=== PATIENT | male | born 1980 | race Caucasian/White ===

== ENCOUNTER → 2016-06-17 | Outpatient (CLI) | payer MEDICARE | LOC: YCFC.O 10:23 | PROVIDERS: ATTEND Nurse Practitioner Family | DX: I82.509 Chronic embolism and thrombosis of unspecified deep veins of unspecified lower extremity (principal) ==

== ENCOUNTER → 2016-06-24 | Outpatient (CLI) | payer MEDICARE | LOC: YCFC.O 09:31 | PROVIDERS: ATTEND Nurse Practitioner Family | DX: I82.509 Chronic embolism and thrombosis of unspecified deep veins of unspecified lower extremity (principal) ==

== ENCOUNTER → 2016-07-01 | Outpatient (CLI) | payer MEDICARE | LOC: YCFC.O 10:19 | PROVIDERS: ATTEND Nurse Practitioner Family | DX: I82.509 Chronic embolism and thrombosis of unspecified deep veins of unspecified lower extremity (principal) ==

== ENCOUNTER → 2016-07-09 | Outpatient (CLI) | payer MEDICARE | LOC: YCFC.O 15:50 | PROVIDERS: ATTEND Nurse Practitioner Family | DX: I82.509 Chronic embolism and thrombosis of unspecified deep veins of unspecified lower extremity (principal) ==

== ENCOUNTER → 2016-07-22 | Outpatient (CLI) | payer MEDICARE, MEDICAID | END | disposition home or self-care (01) | LOC: YCFC.O 10:31 | PROVIDERS: ATTEND Nurse Practitioner Family | DX: I82.509 Chronic embolism and thrombosis of unspecified deep veins of unspecified lower extremity (principal) ==

== ENCOUNTER → 2016-07-30 | Outpatient (CLI) | payer MEDICARE, MEDICAID | LOC: YCFC.O 16:54 | PROVIDERS: ATTEND Nurse Practitioner Family | DX: I82.509 Chronic embolism and thrombosis of unspecified deep veins of unspecified lower extremity (principal) ==

== ENCOUNTER → 2016-08-06 | Outpatient (CLI) | payer MEDICARE, MEDICAID | END | disposition home or self-care (01) | LOC: YCFC.O 10:18 | PROVIDERS: ATTEND Nurse Practitioner Family | DX: I82.509 Chronic embolism and thrombosis of unspecified deep veins of unspecified lower extremity (principal) ==

== ENCOUNTER → 2016-08-11 | Outpatient (CLI) | payer MEDICARE, MEDICAID | END | disposition home or self-care (01) | LOC: YCFC.O 15:43 | PROVIDERS: ATTEND Nurse Practitioner Family | DX: I82.509 Chronic embolism and thrombosis of unspecified deep veins of unspecified lower extremity (principal) ==

== ENCOUNTER → 2016-08-26 | Outpatient (CLI) | payer MEDICARE, MEDICAID | END | disposition home or self-care (01) | LOC: YCFC.O 10:07 | PROVIDERS: ATTEND Nurse Practitioner Family | DX: I82.509 Chronic embolism and thrombosis of unspecified deep veins of unspecified lower extremity (principal) ==

== ENCOUNTER → 2016-09-03 | Outpatient (CLI) | payer MEDICARE, MEDICAID | END | disposition home or self-care (01) | LOC: YCFC.O 10:40 | PROVIDERS: ATTEND Nurse Practitioner Family | DX: I82.509 Chronic embolism and thrombosis of unspecified deep veins of unspecified lower extremity (principal) ==

== ENCOUNTER → 2016-09-09 | Outpatient (CLI) | payer MEDICARE, MEDICAID | END | disposition home or self-care (01) | LOC: YCFC.O 08:27 | PROVIDERS: ATTEND Nurse Practitioner Family | DX: I82.509 Chronic embolism and thrombosis of unspecified deep veins of unspecified lower extremity (principal) ==

== ENCOUNTER → 2016-10-16 | Outpatient (CLI) | payer MEDICARE, MEDICAID | END | disposition home or self-care (01) | LOC: YCFC.O 15:03 | PROVIDERS: ATTEND Nurse Practitioner Family | DX: I82.509 Chronic embolism and thrombosis of unspecified deep veins of unspecified lower extremity (principal) ==

== ENCOUNTER → 2016-10-21 | Outpatient (CLI) | payer MEDICARE, MEDICAID | END | disposition home or self-care (01) | LOC: LAB.O 12:11 | PROVIDERS: ATTEND Nurse Practitioner Family | DX: I82.509 Chronic embolism and thrombosis of unspecified deep veins of unspecified lower extremity (principal) ==

== ENCOUNTER → 2016-11-04 | Outpatient (CLI) | payer MEDICARE, MEDICAID | END | disposition home or self-care (01) | LOC: YCFC.O 10:23 | PROVIDERS: ATTEND Nurse Practitioner Family | DX: I82.509 Chronic embolism and thrombosis of unspecified deep veins of unspecified lower extremity (principal) ==

== ENCOUNTER → 2016-11-25 | Outpatient (CLI) | payer MEDICARE, MEDICAID | END | disposition home or self-care (01) | LOC: YCFC.O 12:10 | PROVIDERS: ATTEND Nurse Practitioner Family | DX: I82.509 Chronic embolism and thrombosis of unspecified deep veins of unspecified lower extremity (principal) ==

== ENCOUNTER → 2016-12-10 | Outpatient (CLI) | payer MEDICARE, MEDICAID | END | disposition home or self-care (01) | LOC: YCFC.O 09:08 | PROVIDERS: ATTEND Nurse Practitioner Family | DX: I82.509 Chronic embolism and thrombosis of unspecified deep veins of unspecified lower extremity (principal) ==

== ENCOUNTER 2016-12-12 07:32 | Emergency (ER) | payer MEDICARE, MEDICAID ==
[2016-12-12 07:47] VITALS: TEMP 97.7
[2016-12-12] MEDS ORDERED: AZITHROMYCIN 250 MG TAB PO ONE (08:22)
[2016-12-12] MEDS ORDERED: cefTRIAXone SODIUM 1 GM VIAL IM ONE ×2 (08:25→08:26)
--- NOTE | 2016-12-12 08:29 | ED.PDOC ---
History of Present Illness - General Chief Complaint: ENT Problem Stated Complaint: sorethroat Time Seen by Provider: 12/12/16 07:52 Source: patient Exam Limitations: no limitations - History of Present Illness Timing/Duration: 24 hours Severity: moderate Improving Factors: nothing Worsening Factors: nothing Associated Symptoms: denies symptoms Allergies/Adverse Reactions: Allergies NO KNOWN ALLERGY Allergy (Verified 12/12/16 07:42) Home Medications: Ambulatory Orders Warfarin Sodium [Coumadin] 6 mg PO DAILY 01/16/15 Review of Systems - Review of Systems Constitutional: States: no symptoms reported EENTM: States: throat pain Respiratory: States: no symptoms reported Cardiology: States: no symptoms reported Gastrointestinal/Abdominal: States: no symptoms reported Genitourinary: States: no symptoms reported Musculoskeletal: States: no symptoms reported Skin: States: no symptoms reported Neurological: States: no symptoms reported Endocrine: States: no symptoms reported All other Systems: No Change from Baseline Past Medical History (General) - Patient Medical History Hx Seizures: No Hx Stroke: No Hx Dementia: No Hx Asthma: No Hx of COPD: No Hx Cardiac Disorders: Yes - Hx DVT Hx Congestive Heart Failure: No Hx Pacemaker: No Hx Hypertension: No Hx Thyroid Disease: No Hx Diabetes: No Hx Gastroesophageal Reflux: No Hx Renal Disease: No Hx Cancer: No Hx of HIV: No Hx Hepatitis C: No Hx MRSA: No MRSA Source:: Wound Surgical History: no surgical history - Vaccination History Hx Tetanus, Diphtheria Vaccination: No Hx Influenza Vaccination: No Hx Pneumococcal Vaccination: No - Social History Hx Tobacco Use: Yes Hx Chewing Tobacco Use: No Hx Alcohol Use: Yes - occasional Hx Substance Use: No Hx Substance Use Treatment: No Hx Depression: No Hx Physical Abuse: No Hx Emotional Abuse: No Hx Suspected Abuse: No - Activities of Daily Living Hospice Agency (if applicable):: None - Female History Patient is a Female of Child Bearing Age (10 -59 yrs old): No Patient : No Family Medical History - Family History Grandparents Living Status: Cause of : old age Hx Family;Other: old age Physical Exam - Physical Exam General Appearance: Alert, Comfortable, No apparent distress Eye Exam: bilateral normal Ears, Nose, Throat: hearing grossly normal, pharyngeal erythema Neck: non-tender Respiratory: chest non-tender, lungs clear, normal breath sounds, no respiratory distress, no accessory muscle use Cardiovascular/Chest: normal peripheral pulses, no edema, other - regular rate Peripheral Pulses: radial,right: 2+, radial,left: 2+ Gastrointestinal/Abdominal: soft Rectal Exam: deferred Extremity: non-tender, no pedal edema, no calf tenderness, normal capillary refill Neurologic: alert, normal mood/affect, oriented x 3 Skin Exam: normal color Comments: Vital Signs - 24 hr 12/12/16 07:35 Temperature 97.7 F Pulse Rate [ 75 pulse ox] Respiratory 20 Rate Blood Pressure 120/74 [Right Arm] O2 Sat by Pulse 97 Oximetry Progress - Progress Progress: 12/12/16 08:29 the patient is a 36-year-old male presenting to the emergency room secondary to fairly significant pharyngitis. He has tested negative for strep. The patient will be covered for other potential bacterial etiologies with a dose of azithromycin and Rocephin here. This is very likely a viral pharyngitis , in which case the antibiotics may not shorten the course. Motrin and Tylenol can be used to help relieve discomfort. Chloraseptic spray can also be used to help reduce discomfort. ER warnings were given for any significant worsening. Departure - Departure Clinical Impression: Pharyngitis Disposition: Discharge to Home or Self Care Condition: Fair Departure Forms: ED Discharge - Pt. Copy, Patient Portal Self Enrollment Instructions: DI for Viral Pharyngitis Diet: regular diet Activity: increase activity as tolerated Referrals: Modesta Beal NP [Primary Care Provider] - 1-2 Weeks Home Medications: Ambulatory Orders Warfarin Sodium [Coumadin] 6 mg PO DAILY 01/16/15 Additional Instructions: the patient is a 36-year-old male presenting to the emergency room secondary to fairly significant pharyngitis. He has tested negative for strep. The patient will be covered for other potential bacterial etiologies with a dose of azithromycin and Rocephin here. This is very likely a viral pharyngitis , in which case the antibiotics may not shorten the course. Motrin and Tylenol can be used to help relieve discomfort. Chloraseptic spray can also be used to help reduce discomfort. ER warnings were given for any significant worsening. he is likely contagious. No sharing of straws or cups or toothbrushes. Frequent hand washing is recommended.
[2016-12-12] MEDS ORDERED: LIDOCAINE 1% 10 ML VIAL INJ ONE (08:33)
[2016-12-12 08:51] VITALS: BP 118/76; O2SAT 99
== END 2016-12-12 08:55 | disposition home or self-care (01) ==
LOC: ER 07:32
DX: J02.9 Acute pharyngitis, unspecified (principal); Z86.718 Personal history of other venous thrombosis and embolism; Z87.891 Personal history of nicotine dependence; Z79.01 Long term (current) use of anticoagulants
CPT/HCPCS: 87070; 87651; J0696; Q0144

== ENCOUNTER → 2016-12-16 | Outpatient (CLI) | payer MEDICARE, MEDICAID | END | disposition home or self-care (01) | LOC: LAB 11:29 | PROVIDERS: ATTEND Nurse Practitioner Family | DX: I80.299 Phlebitis and thrombophlebitis of other deep vessels of unspecified lower extremity (principal) ==

== ENCOUNTER 2016-12-23 22:49 | Emergency (ER) | payer MEDICARE, MEDICAID ==
[2016-12-23 23:11] VITALS: O2SAT 98
--- NOTE | 2016-12-23 23:12 | ED.PDOC ---
History of Present Illness - General Chief Complaint: General Stated Complaint: Reports itching to knee, hx blood clot Time Seen by Provider: 12/23/16 23:02 Source: patient Exam Limitations: no limitations - History of Present Illness Initial Comments: Patient presents because his anterior right thigh is "itching". 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 There has been no change in that clot. He usually gets his INR done on wednesdays but he didn't make his appointment today. He would like his INR checked. No chest pain nor dyspnea. Timing/Duration: 24 hours Severity: mild Improving Factors: nothing Worsening Factors: nothing Associated Symptoms: denies symptoms Allergies/Adverse Reactions: Allergies NO KNOWN ALLERGY Allergy (Verified 12/12/16 07:42) Home Medications: Ambulatory Orders Warfarin Sodium [Coumadin] 6 mg PO DAILY 01/16/15 Review of Systems - Review of Systems Constitutional: States: no symptoms reported EENTM: States: no symptoms reported Respiratory: States: no symptoms reported Cardiology: States: no symptoms reported Gastrointestinal/Abdominal: States: no symptoms reported Genitourinary: States: no symptoms reported Musculoskeletal: States: no symptoms reported Skin: States: see HPI Neurological: States: no symptoms reported Endocrine: States: no symptoms reported Hematologic/Lymphatic: States: no symptoms reported Past Medical History (General) - Patient Medical History Hx Seizures: No Hx Stroke: No Hx Dementia: No Hx Asthma: No Hx of COPD: No Hx Cardiac Disorders: Yes - Hx DVT Hx Congestive Heart Failure: No Hx Pacemaker: No Hx Hypertension: No Hx Thyroid Disease: No Hx Diabetes: No Hx Gastroesophageal Reflux: No Hx Renal Disease: No Hx Cancer: No Hx of HIV: No Hx Hepatitis C: No Hx MRSA: No MRSA Source:: Wound - Vaccination History Hx Tetanus, Diphtheria Vaccination: No Hx Influenza Vaccination: No Hx Pneumococcal Vaccination: No - Social History Hx Tobacco Use: Yes Hx Chewing Tobacco Use: No Hx Alcohol Use: Yes - occasional Hx Substance Use: No Hx Substance Use Treatment: No Hx Depression: No Hx Physical Abuse: No Hx Emotional Abuse: No Hx Suspected Abuse: No - Female History Patient : No Family Medical History - Family History Grandparents Living Status: Cause of : old age Hx Family;Other: old age Physical Exam - Physical Exam General Appearance: Alert Respiratory: lungs clear Cardiovascular/Chest: regular rate, rhythm Gastrointestinal/Abdominal: normal bowel sounds, non tender, soft Skin Exam: normal color Progress - Progress Progress: 12/23/16 23:42 Laboratory Tests 12/23/16 23:20 PT 12.6 H INR 1.120 12/23/16 23:42 Patient ordered to see his physician first thing in the morning for dosage adjustment of his coumadin. He took two tablets today because he forgot to take his normal two yesterday. Departure - Departure Clinical Impression: DVT (deep venous thrombosis) Disposition: Discharge to Home or Self Care Condition: Good Departure Forms: ED Discharge - Pt. Copy, Patient Portal Self Enrollment Diet: resume usual diet Activity: increase activity as tolerated Referrals: Modesta Beal NP [Primary Care Provider] - 1-2 Weeks Home Medications: Ambulatory Orders Warfarin Sodium [Coumadin] 6 mg PO DAILY 01/16/15 Additional Instructions: See your doctor in the morning to have your coumadin (warfarin) dose adjusted. Return to the E.R. for chest pain, leg swelling, or shortness of breath.
[2016-12-23 23:51] VITALS: BP 122/78; TEMP 97
== END 2016-12-23 23:51 | disposition home or self-care (01) ==
LOC: ER 22:49
DX: I82.511 Chronic embolism and thrombosis of right femoral vein (principal); Z79.01 Long term (current) use of anticoagulants; Z87.891 Personal history of nicotine dependence

== ENCOUNTER → 2016-12-30 | Outpatient (CLI) | payer MEDICARE, MEDICAID | LOC: YCFC.O 11:06 | PROVIDERS: ATTEND Nurse Practitioner Family | DX: I80.299 Phlebitis and thrombophlebitis of other deep vessels of unspecified lower extremity (principal) ==

== ENCOUNTER → 2017-01-06 | Outpatient (CLI) | payer MEDICARE, MEDICAID | END | disposition home or self-care (01) | LOC: YCFC.O 12:12 | PROVIDERS: ATTEND Nurse Practitioner Family | DX: I80.299 Phlebitis and thrombophlebitis of other deep vessels of unspecified lower extremity (principal) ==

== ENCOUNTER → 2017-01-20 | Outpatient (CLI) | payer MEDICARE, MEDICAID | END | disposition home or self-care (01) | LOC: YCFC.O 13:52 | PROVIDERS: ATTEND Nurse Practitioner Family | DX: I80.299 Phlebitis and thrombophlebitis of other deep vessels of unspecified lower extremity (principal) ==

== ENCOUNTER → 2017-01-27 | Outpatient (CLI) | payer MEDICARE, MEDICAID | END | disposition home or self-care (01) | LOC: YCFC.O 12:55 | PROVIDERS: ATTEND Nurse Practitioner Family | DX: I80.299 Phlebitis and thrombophlebitis of other deep vessels of unspecified lower extremity (principal) ==

== ENCOUNTER → 2017-02-03 | Outpatient (CLI) | payer MEDICARE, MEDICAID | END | disposition home or self-care (01) | LOC: YCFC.O 12:06 | PROVIDERS: ATTEND Nurse Practitioner Family | DX: I80.299 Phlebitis and thrombophlebitis of other deep vessels of unspecified lower extremity (principal) ==

== ENCOUNTER → 2017-02-10 | Outpatient (CLI) | payer MEDICARE, MEDICAID | END | disposition home or self-care (01) | LOC: YCFC.O 08:50 | PROVIDERS: ATTEND Nurse Practitioner Family | DX: I80.299 Phlebitis and thrombophlebitis of other deep vessels of unspecified lower extremity (principal) ==

== ENCOUNTER → 2017-02-17 | Outpatient (CLI) | payer MEDICARE, MEDICAID | LOC: YCFC.O 11:24 | PROVIDERS: ATTEND Nurse Practitioner Family | DX: I80.299 Phlebitis and thrombophlebitis of other deep vessels of unspecified lower extremity (principal) ==

== ENCOUNTER → 2017-02-24 | Outpatient (CLI) | payer MEDICARE, MEDICAID | END | disposition home or self-care (01) | LOC: YCFC.O 10:23 | PROVIDERS: ATTEND Nurse Practitioner Family | DX: I80.299 Phlebitis and thrombophlebitis of other deep vessels of unspecified lower extremity (principal) ==

== ENCOUNTER → 2017-03-03 | Outpatient (CLI) | payer MEDICARE, MEDICAID | END | disposition home or self-care (01) | LOC: YCFC.O 13:27 | PROVIDERS: ATTEND Nurse Practitioner Family | DX: I82.591 Chronic embolism and thrombosis of other specified deep vein of right lower extremity (principal) ==

== ENCOUNTER → 2017-03-10 | Outpatient (CLI) | payer MEDICARE, MEDICAID | LOC: LAB.O 09:10 | PROVIDERS: ATTEND Nurse Practitioner Family | DX: I82.591 Chronic embolism and thrombosis of other specified deep vein of right lower extremity (principal) ==

== ENCOUNTER → 2017-03-17 | Outpatient (CLI) | payer MEDICARE, MEDICAID | END | disposition home or self-care (01) | LOC: YCFC.O 11:57 | PROVIDERS: ATTEND Nurse Practitioner Family | DX: I82.591 Chronic embolism and thrombosis of other specified deep vein of right lower extremity (principal) ==

== ENCOUNTER → 2017-03-24 | Outpatient (CLI) | payer MEDICARE, MEDICAID | END | disposition home or self-care (01) | LOC: YCFC.O 09:32 | PROVIDERS: ATTEND Nurse Practitioner Family | DX: I82.591 Chronic embolism and thrombosis of other specified deep vein of right lower extremity (principal) ==

== ENCOUNTER → 2017-03-31 | Outpatient (CLI) | payer MEDICARE, MEDICAID | END | disposition home or self-care (01) | LOC: YCFC.O 10:09 | PROVIDERS: ATTEND Nurse Practitioner Family | DX: I82.591 Chronic embolism and thrombosis of other specified deep vein of right lower extremity (principal) ==

== ENCOUNTER → 2017-04-07 | Outpatient (CLI) | payer MEDICARE, MEDICAID | END | disposition home or self-care (01) | LOC: YCFC.O 09:57 | PROVIDERS: ATTEND Nurse Practitioner Family | DX: I82.591 Chronic embolism and thrombosis of other specified deep vein of right lower extremity (principal) ==

== ENCOUNTER 2017-04-09 20:56 | Emergency (ER) | payer MEDICARE, MEDICAID ==
[2017-04-09 21:57] VITALS: TEMP 97.9; O2SAT 98
--- NOTE | 2017-04-09 22:47 | ED.PDOC ---
History of Present Illness - General Chief Complaint: General Stated Complaint: Pt is out of Warfarin Time Seen by Provider: 04/09/17 20:58 Source: patient Exam Limitations: no limitations - History of Present Illness Initial Comments: Jack Otero 37 y/o male stated that he has DVT and on parts counterman anti coagulation came here to have his warfarin dose tonight . Timing/Duration: 4-6 hours Severity: mild Improving Factors: nothing Worsening Factors: nothing Associated Symptoms: denies symptoms Allergies/Adverse Reactions: Allergies NO KNOWN ALLERGY Allergy (Verified 12/12/16 07:42) Home Medications: Ambulatory Orders Warfarin Sodium [Coumadin] 6 mg PO DAILY 01/16/15 Review of Systems - Review of Systems All other Systems: Reviewed and Negative, No Change from Baseline Past Medical History (General) - Patient Medical History Hx Seizures: No Hx Stroke: No Hx Dementia: No Hx Asthma: No Hx of COPD: No Hx Cardiac Disorders: Yes - Hx DVT Hx Congestive Heart Failure: No Hx Pacemaker: No Hx Hypertension: No Hx Thyroid Disease: No Hx Diabetes: No Hx Gastroesophageal Reflux: No Hx Renal Disease: No Hx Cancer: No Hx of HIV: No Hx Hepatitis C: No Hx MRSA: No MRSA Source:: Wound - Vaccination History Hx Tetanus, Diphtheria Vaccination: Yes Hx Influenza Vaccination: Yes Hx Pneumococcal Vaccination: No Immunizations Up to Date: Yes - Social History Hx Tobacco Use: Yes Hx Chewing Tobacco Use: No Hx Alcohol Use: Yes Hx Substance Use: No Hx Substance Use Treatment: No Hx Depression: No Hx Physical Abuse: No Hx Emotional Abuse: No Hx Suspected Abuse: No - Female History Patient : No Family Medical History - Family History Grandparents Living Status: Cause of : old age Hx Family;Other: old age Physical Exam - Physical Exam General Appearance: Alert, Comfortable, No apparent distress Eye Exam: bilateral normal Ears, Nose, Throat: hearing grossly normal Neck: non-tender, supple Respiratory: lungs clear, normal breath sounds Cardiovascular/Chest: normal peripheral pulses, regular rate, rhythm, no murmur Peripheral Pulses: radial,right: 2+, radial,left: 2+ Gastrointestinal/Abdominal: non tender, soft, no organomegaly Extremity: non-tender, no pedal edema, no calf tenderness Neurologic: no motor/sensory deficits, alert, oriented x 3 Skin Exam: normal color, warm/dry Progress - Progress Progress: 04/09/17 22:50 Vital Signs - 8 hr 04/09/17 21:54 Temperature 97.9 F Pulse Rate [ 68 Right radial] Respiratory 18 Rate Blood Pressure 124/75 [Right Arm] O2 Sat by Pulse 98 Oximetry Vital Signs 04/09/17 21:54 Temperature 97.9 F Pulse Rate [ 68 Right radial] Respiratory 18 Rate Blood Pressure 124/75 [Right Arm] O2 Sat by Pulse 98 Oximetry 04/09/17 23:02 Laboratory Tests 04/09/17 22:10 PT 29.3 H* INR 2.620 - Results/Orders Results/Orders: Prescribed Warfarin 6mg # 5 tablets Departure - Departure Clinical Impression: History of DVT of lower extremity, Current use of parts counterman anticoagulation Time of Disposition: 23:05 Disposition: Discharge to Home or Self Care Departure Forms: ED Discharge - Pt. Copy, Patient Portal Self Enrollment Referrals: Esperanza Spears NP [Primary Care Provider] - 1-2 Weeks Home Medications: Ambulatory Orders Warfarin Sodium [Coumadin] 6 mg PO DAILY 01/16/15 Additional Instructions: NEED TO MONITOR MEDICATION IF ITS ABOUT TO RUN OUT:Follow up with primary md
[2017-04-09] MEDS ORDERED: WARFARIN SODIUM 3 MG TAB PO ONE (23:01)
[2017-04-09 23:18] VITALS: BP 118/74
== END 2017-04-09 23:18 | disposition home or self-care (01) ==
LOC: ER 20:56
DX: Z76.0 Encounter for issue of repeat prescription (principal); Z79.01 Long term (current) use of anticoagulants; I82.509 Chronic embolism and thrombosis of unspecified deep veins of unspecified lower extremity; Z87.891 Personal history of nicotine dependence

== ENCOUNTER → 2017-04-14 | Outpatient (CLI) | payer MEDICARE, MEDICAID | LOC: LAB.O 12:47 | PROVIDERS: ATTEND Nurse Practitioner Family | DX: I82.591 Chronic embolism and thrombosis of other specified deep vein of right lower extremity (principal) ==

== ENCOUNTER → 2017-04-21 | Outpatient (CLI) | payer MEDICARE, MEDICAID | END | disposition home or self-care (01) | LOC: YCFC.O 12:17 | PROVIDERS: ATTEND Nurse Practitioner Family | DX: I82.591 Chronic embolism and thrombosis of other specified deep vein of right lower extremity (principal) ==

== ENCOUNTER → 2017-04-28 | Outpatient (CLI) | payer MEDICARE, MEDICAID | END | disposition home or self-care (01) | LOC: YCFC.O 09:08 | PROVIDERS: ATTEND Nurse Practitioner Family | DX: I82.591 Chronic embolism and thrombosis of other specified deep vein of right lower extremity (principal) ==

== ENCOUNTER → 2017-05-05 | Outpatient (CLI) | payer MEDICARE, MEDICAID | END | disposition home or self-care (01) | LOC: LAB.O 09:44 | PROVIDERS: ATTEND Nurse Practitioner Family | DX: I82.591 Chronic embolism and thrombosis of other specified deep vein of right lower extremity (principal) ==

== ENCOUNTER 2017-05-08 20:38 | Emergency (ER) | payer MEDICARE, MEDICAID ==
[2017-05-08] MEDS ORDERED: LIDOCAINE 1% 10 ML VIAL INJ ONE (21:54)
[2017-05-08] MEDS ORDERED: CHLORHEXIDINE GLUCONATE 4 % 15 ML UD TOP ONE ×2 (21:57→21:58)
--- NOTE | 2017-05-08 21:57 | ED.PDOC ---
History of Present Illness - General Chief Complaint: Laceration Stated Complaint: Cut L thumb on curtain leyda Time Seen by Provider: 05/08/17 20:49 Source: patient, RN notes reviewed, Vital Signs reviewed Exam Limitations: no limitations - History of Present Illness Initial Comments: Patient presents to the ER with a laceration to his L thumb. He was hanging curtains and accidentally cut his thumb. He is on a blood thinner. Timing/Duration: just prior to arrival Severity: moderate Location: hands Improving Factors: other - pressure Worsening Factors: movement Associated Symptoms: denies symptoms Allergies/Adverse Reactions: Allergies NO KNOWN ALLERGY Allergy (Verified 12/12/16 07:42) Home Medications: Ambulatory Orders Warfarin Sodium [Coumadin] 6 mg PO DAILY 01/16/15 Review of Systems - Review of Systems Constitutional: States: no symptoms reported Respiratory: States: no symptoms reported Cardiology: States: no symptoms reported Musculoskeletal: States: no symptoms reported Skin: States: see HPI Neurological: States: no symptoms reported. Denies: numbness, paresthesia, tingling, weakness All other Systems: No Change from Baseline Past Medical History (General) - Patient Medical History Hx Seizures: No Hx Stroke: No Hx Dementia: No Hx Asthma: No Hx of COPD: No Hx Cardiac Disorders: Yes - Hx DVT Hx Congestive Heart Failure: No Hx Pacemaker: No Hx Hypertension: No Hx Thyroid Disease: No Hx Diabetes: No Hx Gastroesophageal Reflux: No Hx Renal Disease: No Hx Cancer: No Hx of HIV: No Hx Hepatitis C: No Hx MRSA: No MRSA Source:: Wound - Vaccination History Hx Tetanus, Diphtheria Vaccination: Yes Hx Influenza Vaccination: Yes Hx Pneumococcal Vaccination: No - Social History Hx Tobacco Use: Yes Hx Chewing Tobacco Use: No Hx Alcohol Use: Yes Hx Substance Use: No Hx Substance Use Treatment: No Hx Depression: No Hx Physical Abuse: No Hx Emotional Abuse: No Hx Suspected Abuse: No - Female History Patient : No Family Medical History - Family History Grandparents Living Status: Cause of : old age Hx Family;Other: old age Physical Exam - Physical Exam General Appearance: Alert, Comfortable, No apparent distress, Well Developed, Well Groomed, Well Hydrated, Well Nourished Respiratory: no respiratory distress Extremity: normal range of motion, non-tender Neurologic: no motor/sensory deficits, alert, normal mood/affect, oriented x 3 Skin Exam: warm/dry, normal color Skin Problem Location: upper extremities - L lateral thumb Skin Character: linear - 2cm laceration Comments: Vital Signs 05/08/17 22:13 Temperature 97.1 F L Pulse Rate [Lt 62 arm] Respiratory 20 Rate Blood Pressure 113/66 [Lt arm] O2 Sat by Pulse 100 Oximetry Procedures - Laceration/Wound Repair Left Lateral Distal Finger Wound Length (cm): 2 - Thumb Wound's Depth, Shape: superficial, linear Wound Explored: no foreign body removed Betadine Prep?: No - Soaked in Hibiclens Anesthesia: 1% Lidocaine Volume Anesthetic (cc's): 2 Wound Debrided: minimal Wound Repaired With: sutures Suture Size/Type: 4:0, prolene Number of Sutures: 5 Layer Closure?: No Sterile Dressing Applied?: Yes Splint Applied?: No Sling Applied?: No Departure - Departure Clinical Impression: Laceration of thumb without foreign body without damage to nail Qualifiers: Encounter type: initial encounter Laterality: left Qualified Code(s): S61.012A - Laceration without foreign body of left thumb without damage to nail, initial encounter Time of Disposition: 22:34 Disposition: Discharge to Home or Self Care Condition: Good Departure Forms: ED Discharge - Pt. Copy, Patient Portal Self Enrollment Instructions: DI for Laceration Repair -- Simple Diet: resume usual diet Activity: increase activity as tolerated Referrals: Esperanza Spears NP [Primary Care Provider] - 1-2 Weeks Home Medications: Ambulatory Orders Warfarin Sodium [Coumadin] 6 mg PO DAILY 01/16/15 Additional Instructions: Suture removal in 7 days Keep dry X 48 hours Apply antibiotic ointment twice daily
[2017-05-08] MEDS ORDERED: NEOMYCIN-BACITRACIN-POLYMYXIN 0.9 GM UD TOP ONE ×2 (22:31→22:35)
[2017-05-08 23:13] VITALS: BP 115/76; TEMP 98.2
[2017-05-08 23:19] VITALS: O2SAT 95
== END 2017-05-08 22:50 | disposition home or self-care (01) ==
LOC: ER 20:38
DX: S61.012A Laceration without foreign body of left thumb without damage to nail, initial encounter (principal); Z86.718 Personal history of other venous thrombosis and embolism; Z79.01 Long term (current) use of anticoagulants; Z87.891 Personal history of nicotine dependence; W45.8XXA Other foreign body or object entering through skin, initial encounter; Y92.9 Unspecified place or not applicable

== ENCOUNTER → 2017-05-12 | Outpatient (CLI) | payer MEDICARE, MEDICAID | END | disposition home or self-care (01) | LOC: YCFC.O 11:43 | PROVIDERS: ATTEND Nurse Practitioner Family | DX: I82.591 Chronic embolism and thrombosis of other specified deep vein of right lower extremity (principal) ==

== ENCOUNTER → 2017-05-20 | Outpatient (CLI) | payer MEDICARE, MEDICAID | END | disposition home or self-care (01) | LOC: YCFC.O 11:51 | PROVIDERS: ATTEND Nurse Practitioner Family | DX: I82.591 Chronic embolism and thrombosis of other specified deep vein of right lower extremity (principal) ==

== ENCOUNTER → 2017-09-28 | Outpatient (CLI) | payer MEDICARE, MEDICAID ==
--- NOTE | 2017-09-28 15:13 | US ---
EXAM DESCRIPTION: Venous,Lower Extremity RT CLINICAL HISTORY: ACUTE EMBOLISM AND THROMBOSIS OF UNSPECIFIED VEIN COMPARISON: None Available. TECHNIQUE: Right lower extremity venous duplex FINDINGS: Doppler evaluation of the right lower extremity deep veins was performed. Normal color flow is seen in the common femoral, superficial femoral, profunda femoral and greater saphenous veins. Normal flow is seen in the popliteal vein and veins below the knee in the calf. Normal venous compressibility and flow augmentation. Patient has a palpable area in the mid right thigh. Some of this area shows prominent varicosities in the subcutaneous fat which do not appear to be thrombosed. IMPRESSION: Negative for evidence of deep venous thrombosis on right lower extremity venous Doppler sonogram. Electronically signed by: Jon Cardoso MD 09/28/2017 3:12 PM CDT
== END ==
LOC: YCFC.O 10:30
PROVIDERS: ATTEND Nurse Practitioner Family
DX: Z00.00 Encounter for general adult medical examination without abnormal findings (principal); Z13.220 Encounter for screening for lipoid disorders; I82.90 Acute embolism and thrombosis of unspecified vein

== ENCOUNTER 2017-11-07 19:24 | Emergency (ER) | payer MEDICARE, MEDICAID ==
[2017-11-07 20:44] VITALS: O2SAT 97
[2017-11-07] MEDS ORDERED: SULFA/TRIMETH TAB 800/160 (ER) 1 EA TAB PO ONE (20:45)
[2017-11-07] MEDS ORDERED: cefTRIAXone SODIUM 1 GM VIAL IM ONE (20:45)
[2017-11-07] MEDS ORDERED: LIDOCAINE 1% 10 ML VIAL INJ ONE (20:46)
[2017-11-07] MEDS ORDERED: PLAIN PACKING STRIP 1 1 EA BTTL TOP ONE (20:46)
[2017-11-07] MEDS ORDERED: POVIDONE IODINE 10 % 15 ML UD TOP ONE (20:51)
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
[2017-11-07] MEDS ORDERED: ACETAMINOPHEN W/COD #3 TAB 1 EA TAB PO ONE (21:15)
[2017-11-07] MEDS ORDERED: ACETAMINOPHEN W/COD #3 TAB (ER Disp) PO ONE (21:17)
[2017-11-07 21:40] VITALS: BP 99/68; TEMP 97.9
== END 2017-11-07 21:40 | disposition home or self-care (01) ==
LOC: ER 19:24
DX: L02.214 Cutaneous abscess of groin (principal); Z86.718 Personal history of other venous thrombosis and embolism; Z79.01 Long term (current) use of anticoagulants; Z87.820 Personal history of traumatic brain injury; Z87.891 Personal history of nicotine dependence
CPT/HCPCS: 87070; J0696

== ENCOUNTER → 2017-11-25 | Outpatient (CLI) | payer MEDICARE, MEDICAID | LOC: YCFC.O 10:02 | PROVIDERS: ATTEND Nurse Practitioner Family | DX: Z11.4 Encounter for screening for human immunodeficiency virus [HIV] (principal) ==

== ENCOUNTER → 2017-12-13 | Emergency (ER) | payer MEDICARE, MEDICAID | END | disposition left against medical advice (07) | LOC: ER 21:16 | DX: Z53.21 Procedure and treatment not carried out due to patient leaving prior to being seen by health care provider (principal) ==

== ENCOUNTER → 2017-12-15 | Outpatient (CLI) | payer MEDICARE, MEDICAID | LOC: YCFC.O 14:45 | PROVIDERS: ATTEND Nurse Practitioner Family | DX: I82.591 Chronic embolism and thrombosis of other specified deep vein of right lower extremity (principal) ==

== ENCOUNTER → 2018-01-06 | Outpatient (CLI) | payer MEDICARE, MEDICAID | LOC: YCFC.O 13:40 | PROVIDERS: ATTEND Nurse Practitioner Family | DX: I82.591 Chronic embolism and thrombosis of other specified deep vein of right lower extremity (principal) ==

== ENCOUNTER 2018-01-12 08:21 | Emergency (ER) | payer MEDICARE, MEDICAID ==
[2018-01-12 08:34] VITALS: BP 111/74; TEMP 97.3; O2SAT 97
--- NOTE | 2018-01-12 08:40 | ED.PDOC ---
History of Present Illness - General Chief Complaint: Eye Problems Stated Complaint: red eyes Time Seen by Provider: 01/12/18 08:37 Source: patient Exam Limitations: no limitations - History of Present Illness Initial Comments: the patient is a 37-year-old male presenting to the emergency room secondary to bilateral conjunctivitis. It started in his right eye about 5 days ago and he has developed some in his left eye now for the last 24 hours. No vision changes. No pain. No runny nose or sore throat. No sneezing. No exposure to chemicals. He does not wear contacts. He does not sleep underneath the plan. He has been exposed to several children with pinkeye. He is pleasant and cooperative with no other symptoms.he denies any recent medication changes. Timing/Duration: 1 week Severity: mild Improving Factors: nothing Worsening Factors: nothing Associated Symptoms: denies symptoms Allergies/Adverse Reactions: Allergies NO KNOWN ALLERGY Allergy (Verified 12/12/16 07:42) Home Medications: Ambulatory Orders Warfarin Sodium [Coumadin] 6 mg PO DAILY 01/16/15 Review of Systems - Review of Systems Constitutional: States: no symptoms reported EENTM: States: see HPI Respiratory: States: no symptoms reported Cardiology: States: no symptoms reported Gastrointestinal/Abdominal: States: no symptoms reported Genitourinary: States: no symptoms reported Musculoskeletal: States: no symptoms reported Skin: States: no symptoms reported Neurological: States: no symptoms reported Endocrine: States: no symptoms reported All other Systems: No Change from Baseline Past Medical History (General) - Patient Medical History Hx Seizures: Yes Hx Stroke: No Hx Dementia: No Hx Asthma: No Hx of COPD: No Hx Cardiac Disorders: Yes - Hx DVT Hx Congestive Heart Failure: No Hx Pacemaker: No Hx Hypertension: No Hx Thyroid Disease: No Hx Diabetes: No Hx Gastroesophageal Reflux: No Hx Renal Disease: No Hx Cancer: No Hx of HIV: No Hx Hepatitis C: No Hx MRSA: No MRSA Source:: Wound - Vaccination History Hx Tetanus, Diphtheria Vaccination: Yes Hx Influenza Vaccination: Yes Hx Pneumococcal Vaccination: No - Social History Hx Tobacco Use: Yes Hx Chewing Tobacco Use: No Hx Alcohol Use: Yes Hx Substance Use: No Hx Substance Use Treatment: No Hx Depression: No Hx Physical Abuse: No Hx Emotional Abuse: No Hx Suspected Abuse: No - Female History Patient : No Family Medical History - Family History Grandparents Family History: Unknown Living Status: Cause of : old age Hx Family;Other: old age Physical Exam - Physical Exam General Appearance: Alert, Comfortable, No apparent distress Eye Exam: bilateral other - bilateral conjunctivitis. 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 Given the duration of symptoms of the right eye however I'm going to go ahead and place him on some erythromycin ointment in case he is starting to develop any superficial bacterial infection and this will also help keep the eye moisturized. Additionally the patient can fiber picker some [id number] Systane eyedrops and apply them to each eye every few hours throughout the day until this is cleared up. He does need to do good handwashing as this is likely a transmissible viral conjunctivitis. Oral ibuprofen can help a little bit with discomfort if he has any. ER warnings were given for any significant worsening. If the problem is still present after another 4 or 5 days then he does need another evaluation. If he starts to develop any significant vision changes or increase in pain than he needs a repeat evaluation. Departure - Departure Clinical Impression: Conjunctivitis Qualifiers: Conjunctivitis type: acute Acute conjunctivitis type: viral Laterality: bilateral Qualified Code(s): B30.9 - Viral conjunctivitis, unspecified Disposition: Discharge to Home or Self Care Condition: Fair Departure Forms: ED Discharge - Pt. Copy, Patient Portal Self Enrollment Instructions: Conjunctivitis (Pinkeye) (DC) Diet: regular diet Activity: increase activity as tolerated Referrals: Esperanza Spears NP [Primary Care Provider] - 1-2 Weeks Home Medications: Ambulatory Orders Warfarin Sodium [Coumadin] 6 mg PO DAILY 01/16/15 Additional Instructions: the patient is a 37-year-old male presenting to the emergency room with what is most likely a viral conjunctivitis bilaterally. Given the duration of symptoms of the right eye however I'm going to go ahead and place him on some erythromycin ointment in case he is starting to develop any superficial bacterial infection and this will also help keep the eye moisturized. Additionally the patient can fiber picker some [id number] Systane eyedrops and apply them to each eye every few hours throughout the day until this is cleared up. He does need to do good handwashing as this is likely a transmissible viral conjunctivitis. Oral ibuprofen can help a little bit with discomfort if he has any. ER warnings were given for any significant worsening. If the problem is still present after another 4 or 5 days then he does need another evaluation. If he starts to develop any significant vision changes or increase in pain than he needs a repeat evaluation.
== END 2018-01-12 08:51 | disposition home or self-care (01) ==
LOC: ER 08:21
DX: B30.9 Viral conjunctivitis, unspecified (principal); Z86.73 Personal history of transient ischemic attack (TIA), and cerebral infarction without residual deficits; Z79.01 Long term (current) use of anticoagulants

== ENCOUNTER 2018-02-26 14:46 | Emergency (ER) | payer MEDICARE, MEDICAID ==
[2018-02-26 15:07] VITALS: BP 102/62; TEMP 98.2
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
[2018-02-26 15:57] VITALS: O2SAT 100
== END 2018-02-26 15:40 | disposition home or self-care (01) ==
LOC: ER 14:46
DX: Z03.89 Encounter for observation for other suspected diseases and conditions ruled out (principal); Z79.01 Long term (current) use of anticoagulants; Z86.718 Personal history of other venous thrombosis and embolism

== ENCOUNTER 2018-03-21 18:49 | Emergency (ER) | payer MEDICARE, MEDICAID ==
[2018-03-21 19:21] VITALS: BP 114/64; TEMP 97.6; O2SAT 97
--- NOTE | 2018-03-21 19:27 | ED.PDOC ---
History of Present Illness - General Chief Complaint: Neck Injury/Pain Stated Complaint: neck pain going into left arm x's 2 days Time Seen by Provider: 03/21/18 19:18 Source: patient Exam Limitations: no limitations - History of Present Illness Initial Comments: Patient presents with neck and shoulder pain. He currently is not having it but said that last night he had trouble sleeping because of it. He has had this before and had success with "muscle relaxers". The pain is in the left shoulder , he is unable to specify where, worse with movement, better with rest. Tight in nature. The neck pain is on the left side, worse with rotation of the head, better with rest, also tight in nature. He has not had any recent traumas. No associated symptoms. No other complaints. Timing/Duration: 24 hours Severity: mild Improving Factors: rest Worsening Factors: movement Associated Symptoms: denies symptoms Allergies/Adverse Reactions: Allergies NO KNOWN ALLERGY Allergy (Verified 03/21/18 19:20) Home Medications: Ambulatory Orders Warfarin Sodium [Coumadin] 6 mg PO DAILY 01/16/15 Cyclobenzaprine HCl [Flexeril] 10 mg PO BEDTIME PRN #7 tab 03/21/18 Review of Systems - Review of Systems Constitutional: States: no symptoms reported EENTM: States: no symptoms reported Respiratory: States: no symptoms reported Cardiology: States: no symptoms reported Gastrointestinal/Abdominal: States: no symptoms reported Genitourinary: States: no symptoms reported Musculoskeletal: States: see HPI Skin: States: no symptoms reported Neurological: States: no symptoms reported Endocrine: States: no symptoms reported Hematologic/Lymphatic: States: no symptoms reported Past Medical History (General) - Patient Medical History Hx Seizures: Yes Hx Stroke: No Hx Dementia: No Hx Asthma: No Hx of COPD: No Hx Cardiac Disorders: Yes - Hx DVT Hx Congestive Heart Failure: No Hx Pacemaker: No Hx Hypertension: No Hx Thyroid Disease: No Hx Diabetes: No Hx Gastroesophageal Reflux: No Hx Renal Disease: No Hx Cancer: No Hx of HIV: No Hx Hepatitis C: No Hx MRSA: No MRSA Source:: Wound - Vaccination History Hx Tetanus, Diphtheria Vaccination: Yes Hx Influenza Vaccination: Yes Hx Pneumococcal Vaccination: No - Social History Hx Tobacco Use: Yes Hx Chewing Tobacco Use: No Hx Alcohol Use: Yes Hx Substance Use: No Hx Substance Use Treatment: No Hx Depression: No Hx Physical Abuse: No Hx Emotional Abuse: No Hx Suspected Abuse: No - Female History Patient : No Family Medical History - Family History Grandparents Family History: Unknown Living Status: Cause of : old age Hx Family;Other: old age Physical Exam - Physical Exam General Appearance: Alert Neck: non-tender, full range of motion, supple Respiratory: chest non-tender, lungs clear, normal breath sounds Cardiovascular/Chest: normal peripheral pulses, regular rate, rhythm Gastrointestinal/Abdominal: normal bowel sounds, non tender, soft Extremity: normal range of motion, non-tender, normal inspection Neurologic: no motor/sensory deficits, alert, normal mood/affect, oriented x 3 Skin Exam: normal color Progress - Progress Progress: 03/21/18 19:28 Flexeril 10 mg po x one. RX written for two days of Flexeril. Patient instructed to follow up with his regular doctor if this problem lasts longer than two days. Care instructions given. E.R. warnings given. Questions were elicited and answered. Patient voiced understanding and agreement with the plan. Departure - Departure Clinical Impression: Shoulder sprain, Neck sprain Disposition: Discharge to Home or Self Care Condition: Good Departure Forms: ED Discharge - Pt. Copy, Patient Portal Self Enrollment Instructions: DI for Neck Pain Diet: resume usual diet Activity: increase activity as tolerated Referrals: Esperanza Spears NP [Primary Care Provider] - 1-2 Weeks Prescriptions: Cyclobenzaprine HCl [Flexeril] 10 mg PO BEDTIME PRN #7 tab PRN Reason: Mild To Moderate Pain Home Medications: Ambulatory Orders Warfarin Sodium [Coumadin] 6 mg PO DAILY 01/16/15 Cyclobenzaprine HCl [Flexeril] 10 mg PO BEDTIME PRN #7 tab 03/21/18 Additional Instructions: Take the medication prescribed at night for neck pain. See your regular doctor if pain lasts longer than 2 days.
[2018-03-21] MEDS ORDERED: CYCLOBENZAPRINE HCL 10 MG TAB PO ONE (19:29)
== END 2018-03-21 19:50 | disposition home or self-care (01) ==
LOC: ER 18:49
DX: S16.1XXA Strain of muscle, fascia and tendon at neck level, initial encounter (principal); S43.402A Unspecified sprain of left shoulder joint, initial encounter; Z79.01 Long term (current) use of anticoagulants; Z86.718 Personal history of other venous thrombosis and embolism; Z79.899 Other long term (current) drug therapy; X58.XXXA Exposure to other specified factors, initial encounter; Y92.9 Unspecified place or not applicable

== ENCOUNTER → 2018-06-28 | Outpatient (CLI) | payer MEDICARE, MEDICAID ==
--- NOTE | 2018-06-28 17:19 | US ---
EXAM DESCRIPTION: Venous,Lower Extremity RT: ULTRASOUND. CLINICAL HISTORY: DISORDER OF VEINS COMPARISON: Duplex ultrasound evaluation of the right lower extremity deep venous system 09/28/2017. TECHNIQUE: Chang-scale and doppler sonographic evaluation of the deep venous system of the right lower extremity. FINDINGS: Doppler evaluation shows normal color flow and normal phasicity and augmentation of the right common femoral vein, deep femoral vein, femoral vein, popliteal vein, greater saphenous vein, peroneal, anterior and posterior tibial vein. The right lower extremity deep veins were completely compressible; normal occlusion with transducer pressure. Chang-scale survey showed no echogenic thrombus within these veins. IMPRESSION: 1. Duplex ultrasound evaluation of the right lower extremity deep venous system showing no evidence of thrombosis. Stable since the prior study in September 2017. Electronically signed by: Ramses Payan MD 06/28/2018 5:17 PM [facility] SPOT
== END ==
LOC: US 09:28
PROVIDERS: ATTEND Family Medicine
DX: I82.409 Acute embolism and thrombosis of unspecified deep veins of unspecified lower extremity (principal); I87.8 Other specified disorders of veins

== ENCOUNTER → 2018-12-07 | Outpatient (CLI) | payer MEDICARE, MEDICAID ==
--- NOTE | 2018-12-07 11:47 | US ---
EXAM DESCRIPTION: Venous,Lower Extremity RT: ULTRASOUND. CLINICAL HISTORY: HISTORY OF RECURRENT DEEP VEIN THROMBOSIS. RIGHT LEG. COMPARISON: None Available. TECHNIQUE: Chang-scale and doppler sonographic evaluation of the deep venous system of the right lower extremity. FINDINGS: Doppler evaluation shows normal color flow and normal phasicity and augmentation of the right common femoral vein, femoral vein, popliteal vein, greater saphenous vein, peroneal, and posterior tibial vein. The right lower extremity deep veins were completely compressible; normal occlusion with transducer pressure. Chang-scale survey showed no echogenic thrombus within these veins. IMPRESSION: 1. Duplex ultrasound evaluation of the right lower extremity deep venous system showing no evidence of thrombosis. Stable since the prior study on 06/28/2018. Electronically signed by: Ramses Payan MD 12/07/2018 11:45 AM CDT
== END ==
LOC: YCFC.O 10:19
PROVIDERS: ATTEND Family Medicine
DX: R22.41 Localized swelling, mass and lump, right lower limb (principal); Z86.718 Personal history of other venous thrombosis and embolism

== ENCOUNTER 2019-01-15 17:37 | Emergency (ER) | payer MEDICARE, MEDICAID ==
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
[2019-01-15] MEDS ORDERED: RIVAROXABAN 10 MG TAB PO ONE (18:50)
[2019-01-15 19:15] VITALS: BP 109/58; TEMP 97.2; O2SAT 99
== END 2019-01-15 19:10 | disposition home or self-care (01) ==
LOC: ER 17:37
DX: Z76.0 Encounter for issue of repeat prescription (principal); Z79.01 Long term (current) use of anticoagulants; Z86.718 Personal history of other venous thrombosis and embolism; Z87.891 Personal history of nicotine dependence; Z79.899 Other long term (current) drug therapy

== ENCOUNTER → 2019-03-02 | Outpatient (CLI) | payer OTHER, MEDICAID ==
--- NOTE | 2019-03-02 20:57 | US ---
EXAM DESCRIPTION: Venous,Lower Extremity RT: ULTRASOUND. CLINICAL HISTORY: HX OF THROMBOSIS COMPARISON: Scans November and June 2018 and September 2017. TECHNIQUE: Chang-scale and doppler sonographic evaluation of the deep venous system of the right lower extremity. FINDINGS: On grayscale evaluation, echogenic old thrombus visible in the right superficial femoral vein and the femoral vein. But Doppler evaluation shows normal color flow and normal phasicity and augmentation of the right common femoral vein, femoral vein, popliteal vein, greater saphenous vein junction with the common femoral vein, peroneal, and posterior tibial vein. The right lower extremity deep veins were completely compressible; normal occlusion with transducer pressure. Chang-scale survey showed no echogenic thrombus within these veins. Palpable area on the medial distal thigh corresponds to varicose veins. IMPRESSION: 1. Duplex ultrasound evaluation of the right lower extremity deep venous system showing no evidence of acute thrombosis. 2. 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 3. Varicose veins on the medial distal thigh. Electronically signed by: Ramses Payan MD 03/02/2019 8:56 PM CDT
== END ==
LOC: LAB.O 10:39
PROVIDERS: ATTEND Nurse Practitioner
DX: I82.511 Chronic embolism and thrombosis of right femoral vein (principal); I83.91 Asymptomatic varicose veins of right lower extremity

== ENCOUNTER → 2019-03-08 | Outpatient (CLI) | payer OTHER, MEDICAID | LOC: LAB.O 13:09 | PROVIDERS: ATTEND Nurse Practitioner | DX: Z86.718 Personal history of other venous thrombosis and embolism (principal) ==

== ENCOUNTER 2019-03-11 19:19 | Emergency (ER) | payer OTHER, MEDICAID ==
[2019-03-11] MEDS ORDERED: TETANUS,DIPHTHERIA,PERTUSSIS 1 EA SYG IM ONE (19:40)
[2019-03-11 19:42] VITALS: BP 129/76; TEMP 98.2; O2SAT 96
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
== END 2019-03-11 20:00 | disposition home or self-care (01) ==
LOC: ER 19:19
DX: S81.812A Laceration without foreign body, left lower leg, initial encounter (principal); R56.9 Unspecified convulsions; Z86.718 Personal history of other venous thrombosis and embolism; Z87.891 Personal history of nicotine dependence; Z79.01 Long term (current) use of anticoagulants; V18.0XXA Pedal cycle driver injured in noncollision transport accident in nontraffic accident, initial encounter; Y93.55 Activity, bike riding; Y92.9 Unspecified place or not applicable

== ENCOUNTER 2019-05-15 09:31 | Emergency (ER) | payer OTHER, MEDICAID ==
[2019-05-15 09:46] VITALS: TEMP 97.3
--- NOTE | 2019-05-15 09:51 | ED.PDOC ---
History of Present Illness - General Chief Complaint: Skin/Abrasion/Tear Stated Complaint: "cut on my nose after fall last " Time Seen by Provider: 05/15/19 09:49 Source: patient Exam Limitations: no limitations - History of Present Illness Initial Comments: the patient is a 39-year-old male presenting to the emergency room secondary to sustaining an abrasion to the bridge of his nose approximately 4 days ago. The patient has started to develop increasing erythema and there is a honey crust colored to laceration indicating impetigo. No deeper laceration. He is breathing well out of both nostrils. There is of course swelling around the area but no obvious new bony deformity.the patient reports she is no longer taking Coumadin, he is rather on xarelto. Timing/Duration: other - 4 days Severity: mild Improving Factors: nothing Worsening Factors: nothing Associated Symptoms: denies symptoms Allergies/Adverse Reactions: Allergies NO KNOWN ALLERGY Allergy (Verified 03/11/19 19:38) Home Medications: Ambulatory Orders Warfarin Sodium [Coumadin] 6 mg PO DAILY 01/16/15 Cyclobenzaprine HCl [Flexeril] 10 mg PO BEDTIME PRN #7 tab 03/21/18 Sulfa/Trimeth 800/160 (Ds) Tab [Bactrim DS Tab] 1 ea PO BID #14 tab 05/15/19 Review of Systems - Review of Systems Constitutional: States: no symptoms reported EENTM: States: see HPI Respiratory: States: no symptoms reported Cardiology: States: no symptoms reported Gastrointestinal/Abdominal: States: no symptoms reported Genitourinary: States: no symptoms reported Musculoskeletal: States: no symptoms reported Skin: States: see HPI Neurological: States: no symptoms reported Endocrine: States: no symptoms reported All other Systems: No Change from Baseline Past Medical History (General) - Patient Medical History Hx Seizures: Yes Hx Stroke: No Hx Dementia: No Hx Asthma: No Hx of COPD: No Hx Cardiac Disorders: Yes - Hx DVT Hx Congestive Heart Failure: No Hx Pacemaker: No Hx Hypertension: No Hx Thyroid Disease: No Hx Diabetes: No Hx Gastroesophageal Reflux: No Hx Renal Disease: No Hx Cancer: No Hx of HIV: No Hx Hepatitis C: No Hx MRSA: No MRSA Source:: Wound - Vaccination History Hx Tetanus, Diphtheria Vaccination: Yes Hx Influenza Vaccination: Yes Hx Pneumococcal Vaccination: No - Social History Hx Tobacco Use: Yes Hx Chewing Tobacco Use: No Hx Alcohol Use: Yes Hx Substance Use: No Hx Substance Use Treatment: No Hx Depression: No Hx Physical Abuse: No Hx Emotional Abuse: No Hx Suspected Abuse: No - Activities of Daily Living Hospice Agency (if applicable):: None - Female History Patient : No Family Medical History - Family History Grandparents Family History: Unknown Living Status: Cause of : old age Hx Family;Other: old age Physical Exam - Physical Exam General Appearance: Alert, Comfortable, No apparent distress Eye Exam: bilateral normal Ears, Nose, Throat: hearing grossly normal, normal pharynx, other - ee history of present illness Neck: non-tender, supple Respiratory: no respiratory distress, no accessory muscle use Cardiovascular/Chest: normal peripheral pulses, no edema Peripheral Pulses: radial,right: 2+, radial,left: 2+ Rectal Exam: deferred Extremity: normal range of motion, no pedal edema, normal capillary refill Neurologic: mooner II-XII nml as tested, alert, normal mood/affect, oriented x 3, other - chronic changes from previous injury Skin Exam: other - see history of present illness Comments: Vital Signs - 24 hr 05/15/19 09:42 Temperature 97.3 F L Pulse Rate [ 89 monitor] Respiratory 18 Rate Blood Pressure 130/78 [Left Arm] O2 Sat by Pulse 99 Oximetry Progress - Progress Progress: 05/15/19 09:52 the patient is a 39-year-old male presenting to the emergency room secondary to sustaining an abrasion over the bridge of his nose approximately 4 days ago. This has started to develop an associated cellulitis and likely impetigo. The patient is currently placed on Bactrim for the next 7 days in treatment of this. ER warnings were given for worsening. stephaniejose renner [phone] 05/15/19 09:53 Departure - Departure Clinical Impression: Impetigo Disposition: Discharge to Home or Self Care Condition: Good Departure Forms: ED Discharge - Pt. Copy, Patient Portal Self Enrollment Instructions: DI for Wound Infection Diet: regular diet Activity: increase activity as tolerated Referrals: Esperanza Spears NP [Primary Care Provider] - 1-5 Days Prescriptions: Sulfa/Trimeth 800/160 (Ds) Tab [Bactrim DS Tab] 1 ea PO BID #14 tab Home Medications: Ambulatory Orders Warfarin Sodium [Coumadin] 6 mg PO DAILY 01/16/15 Cyclobenzaprine HCl [Flexeril] 10 mg PO BEDTIME PRN #7 tab 03/21/18 Sulfa/Trimeth 800/160 (Ds) Tab [Bactrim DS Tab] 1 ea PO BID #14 tab 05/15/19 Additional Instructions: the patient is a 39-year-old male presenting to the emergency room secondary to sustaining an abrasion over the bridge of his nose approximately 4 days ago. This has started to develop an associated cellulitis and likely impetigo. The patient is currently placed on Bactrim for the next 7 days in treatment of this. ER warnings were given for worsening.
[2019-05-15] MEDS: SULFA/TRIMETH 800/160 (DS) TAB 1 EA TAB PO ONE (09:56)
[2019-05-15 10:29] VITALS: BP 119/58; O2SAT 100
== END 2019-05-15 10:25 | disposition home or self-care (01) ==
LOC: ER 09:31
DX: L01.00 Impetigo, unspecified (principal); R56.9 Unspecified convulsions; Z87.891 Personal history of nicotine dependence; Z86.718 Personal history of other venous thrombosis and embolism; Z79.01 Long term (current) use of anticoagulants; Z79.899 Other long term (current) drug therapy